=== PATIENT | male | born 1950 | race Caucasian/White ===

== ENCOUNTER → 2020-08-25 | Day surgery (SDC) | payer MEDICARE ==
[~2020-08-25] MED LIST: ASPIRIN EC81 MG PO; DICLOFENAC SODI75 MG PO; PERCOCET 5-3251 EACH PO; PRAVACHOL40 MG PO; ZYRTEC10 M3 PO
[2020-08-25 06:44] LABS: HCT 43.4 % (42.0-52.0); HGB 14.7 g/dl (13.2-18.0); MCHC 33.9 g/dL (32.0-36.0); MCV 91.6 fL (78.0-100.0); MPV 10.3 fL (6.0-9.5); RBC 4.74 M/uL (4.70-6.00); RDW 12.7 % (11.5-14.0)
[2020-08-25 07:14] LABS: ALBUMIN 3.6 g/dL (3.4-5.0); BILIRUBIN - TOTAL 0.5 mg/dL (0.2-1.0); BUN/CREAT RATIO (CALC) 19.8 RATIO; CREATININE 0.91 mg/dL (0.67-1.17); GLOBULIN (CALCULATION) 2.9 g/dL; POTASSIUM 4.2 mmol/L (3.5-5.1); TOTAL PROTEIN 6.5 g/dL (6.4-8.2)
== END | disposition home or self-care (01) ==
LOC: FAS 06:04
PROVIDERS: Orthopaedic Surgery
DX: S83.232A Complex tear of medial meniscus, current injury, left knee, initial encounter (principal); M79.4 Hypertrophy of (infrapatellar) fat pad; M13.88 Other specified arthritis, other site; X58.XXXA Exposure to other specified factors, initial encounter
CPT/HCPCS: 36415; 80053; J2250; J2370; J2405; J2704; J3010; J7120